=== PATIENT | female | born 1970 | race Caucasian/White ===

== ENCOUNTER 2023-04-10 17:23 | Inpatient (IN) | payer BC, OTHER ==
[2023-04-10] MEDS ORDERED: Sodium Chloride 0.9% 1,000 ML IV ONE (17:39)
[2023-04-10] MEDS ORDERED: Bupivacaine 0.5%/EPINEPHrine 1:200,000 50 ML MDV ONE (17:59)
[2023-04-10] MEDS ORDERED: Lidocaine 1% 30 ML SDV ONE (18:00)
[2023-04-10] MEDS ORDERED: Heparin Sodium 5,000 Units/ML Vial SUBCUT SCH (18:00)
[2023-04-10] MEDS: HYDROmorphone 0.5 MG/0.5 ML Syringe IVPUSH PRN (18:05)
[2023-04-10] MEDS: metroNIDAZOLE/Normal Saline 500 MG in Premix Bag 1 BAG IV SCH (18:05)
[2023-04-10] MEDS: cefTRIAXone 2 GM in Sodium Chloride 0.9% 100 ML IV SCH (18:05)
[2023-04-10] MEDS ORDERED: Propofol 200 MG/20 ML SDV ONE ×4 (18:08→19:39)
[2023-04-10] MEDS ORDERED: Dexamethasone 4 MG/ML 5 ML MDV ONE (18:08)
[2023-04-10] MEDS ORDERED: Lidocaine 1% 4 ML ONE (18:08)
[2023-04-10] MEDS ORDERED: Ondansetron 4 MG/2 ML SDV ONE (18:08)
[2023-04-10] MEDS ORDERED: fentaNYL 100 MCG/2 ML SDV ONE (18:08)
[2023-04-10] MEDS ORDERED: Ketorolac 30 MG/ML SDV ONE (18:08)
[2023-04-10] MEDS ORDERED: Rocuronium 50 MG/5 ML Vial ONE ×2 (18:09→19:01)
[2023-04-10] MEDS ORDERED: HYDROmorphone 0.5 MG/0.5 ML Syringe IVPUSH PRN (18:24)
[2023-04-10] MEDS ORDERED: fentaNYL 100 MCG/2 ML SDV IVPUSH PRN (18:24)
[2023-04-10] MEDS ORDERED: Ondansetron 4 MG/2 ML SDV IVPUSH PRN (18:24)
[2023-04-10] MEDS ORDERED: Midazolam 1 MG/ML 2 ML SDV ONE (18:37)
[2023-04-10] MEDS ORDERED: HYDROmorphone 0.5 MG/0.5 ML Syringe ONE ×2 (18:45→19:00)
[2023-04-10] MEDS ORDERED: Metoclopramide 10 MG/2 ML SDV ONE (19:04)
[2023-04-10] MEDS ORDERED: Sugammadex Sodium 200 MG/2 ML VIAL ONE (19:18)
[2023-04-10] MEDS ORDERED: Bupivacaine 0.5% 30 ML SDV ONE (19:52)
[2023-04-10] MEDS: Lactated Ringers 1,000 ML IV SCH (21:15)
[2023-04-11] MEDS: metroNIDAZOLE/Normal Saline 500 MG in Premix Bag 1 BAG IV SCH ×3 (01:48→18:22)
[2023-04-11] MEDS: Lactated Ringers 1,000 ML IV SCH ×2 (01:51→14:49)
[2023-04-11] MEDS: Heparin Sodium 5,000 Units/ML Vial SUBCUT SCH ×4 (03:25→21:09)
[2023-04-11 06:32] LABS: BASOPHILS ABSOLUTE AUTO 0.1 K/mm3 (0.0-0.2); BASOPHILS PERCENT AUTO 0.5 % (0.0-1.0); EOSINOPHILS PERCENT AUTO 0.3 % (0.0-6.0); HEMATOCRIT 36.4 % (37.0-47.0); HEMOGLOBIN 12.4 gm/dl (12.0-16.0); IMMATURE GRAN ABSOLUTE AUTO 0.03 K/mm3 (0.00-0.05); IMMATURE GRAN PERCENT AUTO 0.3 % (0.0-0.4); LYMPHOCYTES ABSOLUTE AUTO 0.4 K/mm3 (1.0-4.8); LYMPHOCYTES PERCENT AUTO 3.5 % (24.0-44.0); MEAN CORPUSCULAR HEMOGLOBIN 30.7 pg (28.0-32.0); MEAN CORPUSCULAR HGB CONC 34.1 g/dl (32.0-36.0); MEAN CORPUSCULAR VOLUME 90.1 fl (83.0-99.0); MEAN PLATELET VOLUME 9.8 fl (9.4-12.3); MONOCYTES ABSOLUTE AUTO 0.5 K/mm3 (0.0-0.8); MONOCYTES PERCENT AUTO 4.9 % (0.0-8.0); NEUTROPHILS ABSOLUTE AUTO 9.6 K/mm3 (1.8-7.7); NEUTROPHILS PERCENT AUTO 90.5 % (41.0-71.0); PLATELET COUNT,PLT 161 K/mm3 (150-400); RED BLOOD CELL COUNT 4.04 M/mm3 (4.10-5.30)
[2023-04-11] MEDS: HYDROmorphone 0.5 MG/0.5 ML Syringe IVPUSH PRN ×2 (06:32→12:53)
[2023-04-11 07:07] LABS: A/G RATIO 0.9 (1-2); ALBUMIN 2.8 g/dl (3.4-5.0); ANION GAP 12.2 (5-15); BILIRUBIN TOTAL 0.7 mg/dL (0.2-1.0); BUN/CREATININE RATIO 16.3 (14-18); CALCIUM 8.8 mg/dL (8.5-10.1); CREATININE 0.8 mg/dL (0.55-1.02); EST CRCL DRUG DOSING (CG) 75.26 mL/min; POTASSIUM,K 3.2 mEq/L (3.5-5.1); PROTEIN TOTAL,TP 6.1 g/dl (6.4-8.2)
[2023-04-11] MEDS ORDERED: Potassium Chloride 10 MEQ in Premix Bag 1 BAG IV ONE (07:49)
[2023-04-11 08:54] LABS: SLIDE REVIEW ABNORMAL SMEAR
[2023-04-11] MEDS: Potassium Chloride 10 MEQ Tab.ER PO SCH ×2 (09:05→21:09)
[2023-04-11] MEDS: Pantoprazole 40 MG Vial IVPUSH SCH (09:05)
[2023-04-11] MEDS: Acetaminophen/HYDROcodone 325-10 MG Tab PO PRN ×2 (17:25→23:22)
[2023-04-11] MEDS: cefTRIAXone 2 GM in Sodium Chloride 0.9% 100 ML IV SCH (18:23)
[2023-04-11] MEDS ORDERED: Heparin Sodium 5,000 Units/ML Vial SUBCUT SCH (23:30)
[2023-04-12] MEDS: metroNIDAZOLE/Normal Saline 500 MG in Premix Bag 1 BAG IV SCH ×3 (02:10→17:06)
[2023-04-12] MEDS: Lactated Ringers 1,000 ML IV SCH ×2 (03:32→18:20)
[2023-04-12] MEDS: Acetaminophen/HYDROcodone 325-10 MG Tab PO PRN ×3 (05:23→20:05)
[2023-04-12] MEDS: Heparin Sodium 5,000 Units/ML Vial SUBCUT SCH ×3 (05:23→21:10)
[2023-04-12 06:08] LABS: A/G RATIO 0.7 (1-2); ALBUMIN 2.5 g/dl (3.4-5.0); ANION GAP 10.6 (5-15); BILIRUBIN TOTAL 0.5 mg/dL (0.2-1.0); BUN/CREATININE RATIO 16.3 (14-18); CALCIUM 8.4 mg/dL (8.5-10.1); CREATININE 0.8 mg/dL (0.55-1.02); EST CRCL DRUG DOSING (CG) 75.26 mL/min; POTASSIUM,K 3.6 mEq/L (3.5-5.1); PROTEIN TOTAL,TP 6.3 g/dl (6.4-8.2)
[2023-04-12 06:15] LABS: BASOPHILS PERCENT AUTO 0.1 % (0.0-1.0); EOSINOPHILS PERCENT AUTO 0.1 % (0.0-6.0); HEMATOCRIT 33.9 % (37.0-47.0); HEMOGLOBIN 11.5 gm/dl (12.0-16.0); IMMATURE GRAN ABSOLUTE AUTO 0.02 K/mm3 (0.00-0.05); IMMATURE GRAN PERCENT AUTO 0.2 % (0.0-0.4); LYMPHOCYTES ABSOLUTE AUTO 0.7 K/mm3 (1.0-4.8); LYMPHOCYTES PERCENT AUTO 8.1 % (24.0-44.0); MEAN CORPUSCULAR HEMOGLOBIN 31.5 pg (28.0-32.0); MEAN CORPUSCULAR HGB CONC 33.9 g/dl (32.0-36.0); MEAN CORPUSCULAR VOLUME 92.9 fl (83.0-99.0); MONOCYTES ABSOLUTE AUTO 0.4 K/mm3 (0.0-0.8); MONOCYTES PERCENT AUTO 4.5 % (0.0-8.0); NEUTROPHILS ABSOLUTE AUTO 7.1 K/mm3 (1.8-7.7); PLATELET COUNT,PLT 144 K/mm3 (150-400); RED BLOOD CELL COUNT 3.65 M/mm3 (4.10-5.30); WHITE BLOOD CELL COUNT,WBC 8.17 K/mm3 (3.9-11.3)
[2023-04-12] MEDS: HYDROmorphone 0.5 MG/0.5 ML Syringe IVPUSH PRN (08:19)
[2023-04-12] MEDS: Potassium Chloride 10 MEQ Tab.ER PO SCH (08:20)
[2023-04-12] MEDS: Pantoprazole 40 MG Vial IVPUSH SCH (08:20)
[2023-04-12] MEDS: Ondansetron 4 MG/2 ML SDV IVPUSH PRN (09:10)
[2023-04-12] MEDS: Polyethylene Glycol 3350 Powder 17 GM Packet PO SCH (10:16)
[2023-04-12] MEDS: Docusate Sodium 100 MG Cap PO SCH ×2 (10:16→20:05)
[2023-04-12] MEDS: cefTRIAXone 2 GM in Sodium Chloride 0.9% 100 ML IV SCH (18:20)
[2023-04-13] MEDS: metroNIDAZOLE/Normal Saline 500 MG in Premix Bag 1 BAG IV SCH ×3 (02:13→18:38)
[2023-04-13] MEDS: Acetaminophen/HYDROcodone 325-10 MG Tab PO PRN ×3 (03:20→17:11)
[2023-04-13] MEDS: Heparin Sodium 5,000 Units/ML Vial SUBCUT SCH ×3 (05:48→22:15)
[2023-04-13] MEDS: Docusate Sodium 100 MG Cap PO SCH ×2 (08:26→20:07)
[2023-04-13] MEDS: Polyethylene Glycol 3350 Powder 17 GM Packet PO SCH (08:27)
[2023-04-13] MEDS: Pantoprazole 40 MG Vial IVPUSH SCH (08:27)
[2023-04-13] MEDS: Ondansetron 4 MG/2 ML SDV IVPUSH PRN ×3 (08:52→23:38)
[2023-04-13] MEDS: Lactated Ringers 1,000 ML IV SCH (13:34)
[2023-04-13] MEDS: cefTRIAXone 2 GM in Sodium Chloride 0.9% 100 ML IV SCH (18:38)
[2023-04-14] MEDS: Acetaminophen/HYDROcodone 325-10 MG Tab PO PRN ×4 (00:07→18:25)
[2023-04-14] MEDS: metroNIDAZOLE/Normal Saline 500 MG in Premix Bag 1 BAG IV SCH ×3 (01:18→18:25)
[2023-04-14] MEDS: Lactated Ringers 1,000 ML IV SCH (01:18)
[2023-04-14] MEDS: Dextrose 5%-0.45% NaCl 1,000 ML IV SCH ×3 (02:24→21:37)
[2023-04-14] MEDS: Ondansetron 4 MG/2 ML SDV IVPUSH PRN ×4 (03:45→19:48)
[2023-04-14] MEDS: Heparin Sodium 5,000 Units/ML Vial SUBCUT SCH ×3 (06:15→21:32)
[2023-04-14 07:22] LABS: BASOPHILS PERCENT AUTO 0.2 % (0.0-1.0); EOSINOPHILS ABSOLUTE AUTO 0.1 K/mm3 (0.0-0.4); EOSINOPHILS PERCENT AUTO 0.7 % (0.0-6.0); HEMATOCRIT 33.1 % (37.0-47.0); HEMOGLOBIN 11.2 gm/dl (12.0-16.0); IMMATURE GRAN ABSOLUTE AUTO 0.03 K/mm3 (0.00-0.05); IMMATURE GRAN PERCENT AUTO 0.4 % (0.0-0.4); LYMPHOCYTES ABSOLUTE AUTO 0.6 K/mm3 (1.0-4.8); LYMPHOCYTES PERCENT AUTO 7.1 % (24.0-44.0); MEAN CORPUSCULAR HEMOGLOBIN 30.9 pg (28.0-32.0); MEAN CORPUSCULAR HGB CONC 33.8 g/dl (32.0-36.0); MEAN CORPUSCULAR VOLUME 91.4 fl (83.0-99.0); MEAN PLATELET VOLUME 9.2 fl (9.4-12.3); MONOCYTES ABSOLUTE AUTO 0.4 K/mm3 (0.0-0.8); MONOCYTES PERCENT AUTO 5.2 % (0.0-8.0); NEUTROPHILS ABSOLUTE AUTO 7.3 K/mm3 (1.8-7.7); NEUTROPHILS PERCENT AUTO 86.4 % (41.0-71.0); PLATELET COUNT,PLT 184 K/mm3 (150-400); RED BLOOD CELL COUNT 3.62 M/mm3 (4.10-5.30); WHITE BLOOD CELL COUNT,WBC 8.49 K/mm3 (3.9-11.3)
[2023-04-14 08:05] LABS: A/G RATIO 0.6 (1-2); ALBUMIN 2.3 g/dl (3.4-5.0); ANION GAP 11.4 (5-15); BILIRUBIN TOTAL 0.3 mg/dL (0.2-1.0); BUN/CREATININE RATIO 15.7 (14-18); CREATININE 0.7 mg/dL (0.55-1.02); EST CRCL DRUG DOSING (CG) 86.01 mL/min; POTASSIUM,K 3.4 mEq/L (3.5-5.1); PROTEIN TOTAL,TP 6.2 g/dl (6.4-8.2)
[2023-04-14 08:27] LABS: CALCIUM 8.5 mg/dL (8.5-10.1)
[2023-04-14] MEDS: Pantoprazole 40 MG Vial IVPUSH SCH (09:49)
[2023-04-14] MEDS: Docusate Sodium 100 MG Cap PO SCH ×3 (11:37→21:29)
[2023-04-14] MEDS: Polyethylene Glycol 3350 Powder 17 GM Packet PO SCH (11:38)
[2023-04-14] MEDS: cefTRIAXone 2 GM in Sodium Chloride 0.9% 100 ML IV SCH (17:44)
[2023-04-15] MEDS: Acetaminophen/HYDROcodone 325-10 MG Tab PO PRN ×2 (00:27→07:05)
[2023-04-15] MEDS: Ondansetron 4 MG/2 ML SDV IVPUSH PRN ×6 (00:27→21:18)
[2023-04-15] MEDS: metroNIDAZOLE/Normal Saline 500 MG in Premix Bag 1 BAG IV SCH ×3 (02:00→19:05)
[2023-04-15 05:36] LABS: BASOPHILS PERCENT AUTO 0.6 % (0.0-1.0); EOSINOPHILS ABSOLUTE AUTO 0.1 K/mm3 (0.0-0.4); EOSINOPHILS PERCENT AUTO 1.6 % (0.0-6.0); HEMATOCRIT 32.6 % (37.0-47.0); IMMATURE GRAN ABSOLUTE AUTO 0.06 K/mm3 (0.00-0.05); IMMATURE GRAN PERCENT AUTO 0.9 % (0.0-0.4); LYMPHOCYTES ABSOLUTE AUTO 0.7 K/mm3 (1.0-4.8); LYMPHOCYTES PERCENT AUTO 10.4 % (24.0-44.0); MEAN CORPUSCULAR HEMOGLOBIN 30.4 pg (28.0-32.0); MEAN CORPUSCULAR HGB CONC 33.7 g/dl (32.0-36.0); MEAN CORPUSCULAR VOLUME 90.1 fl (83.0-99.0); MEAN PLATELET VOLUME 9.3 fl (9.4-12.3); MONOCYTES ABSOLUTE AUTO 0.6 K/mm3 (0.0-0.8); MONOCYTES PERCENT AUTO 8.4 % (0.0-8.0); NEUTROPHILS ABSOLUTE AUTO 5.5 K/mm3 (1.8-7.7); NEUTROPHILS PERCENT AUTO 78.1 % (41.0-71.0); PLATELET COUNT,PLT 194 K/mm3 (150-400); RED BLOOD CELL COUNT 3.62 M/mm3 (4.10-5.30); WHITE BLOOD CELL COUNT,WBC 7.01 K/mm3 (3.9-11.3)
[2023-04-15 06:00] LABS: A/G RATIO 0.6 (1-2); ALBUMIN 2.1 g/dl (3.4-5.0); BILIRUBIN TOTAL 0.2 mg/dL (0.2-1.0); BUN/CREATININE RATIO 11.4 (14-18); CALCIUM 8.3 mg/dL (8.5-10.1); CREATININE 0.7 mg/dL (0.55-1.02); EST CRCL DRUG DOSING (CG) 86.01 mL/min; PROTEIN TOTAL,TP 5.7 g/dl (6.4-8.2)
[2023-04-15] MEDS: Heparin Sodium 5,000 Units/ML Vial SUBCUT SCH (07:06)
[2023-04-15] MEDS: Pantoprazole 40 MG Vial IVPUSH SCH (08:28)
[2023-04-15] MEDS: Docusate Sodium 100 MG Cap PO SCH (08:32)
[2023-04-15] MEDS: Polyethylene Glycol 3350 Powder 17 GM Packet PO SCH (08:32)
[2023-04-15] MEDS ORDERED: Morphine 2 MG/ML SYRINGE IVPUSH PRN (09:54)
[2023-04-15] MEDS ORDERED: Naloxone 0.4 MG/ML SDV IVPUSH PRN (09:54)
[2023-04-15] MEDS: Ketorolac 30 MG/ML SDV IVPUSH SCH ×3 (10:07→21:18)
[2023-04-15] MEDS: Dextrose 5%-0.45% NaCl 1,000 ML IV SCH (13:18)
[2023-04-15] MEDS ORDERED: cefTRIAXone 2 GM Vial ONE (18:14)
[2023-04-15] MEDS: cefTRIAXone 2 GM in Sodium Chloride 0.9% 100 ML IV SCH (18:21)
[2023-04-16] MEDS: Ondansetron 4 MG/2 ML SDV IVPUSH PRN (00:58)
[2023-04-16] MEDS: metroNIDAZOLE/Normal Saline 500 MG in Premix Bag 1 BAG IV SCH ×3 (02:19→17:02)
[2023-04-16] MEDS: Ketorolac 30 MG/ML SDV IVPUSH SCH ×4 (03:47→21:59)
[2023-04-16 05:35] LABS: BASOPHILS ABSOLUTE AUTO 0.1 K/mm3 (0.0-0.2); BASOPHILS PERCENT AUTO 0.8 % (0.0-1.0); EOSINOPHILS ABSOLUTE AUTO 0.1 K/mm3 (0.0-0.4); EOSINOPHILS PERCENT AUTO 2.4 % (0.0-6.0); HEMATOCRIT 31.4 % (37.0-47.0); HEMOGLOBIN 10.9 gm/dl (12.0-16.0); IMMATURE GRAN ABSOLUTE AUTO 0.13 K/mm3 (0.00-0.05); IMMATURE GRAN PERCENT AUTO 2.2 % (0.0-0.4); LYMPHOCYTES ABSOLUTE AUTO 1.1 K/mm3 (1.0-4.8); LYMPHOCYTES PERCENT AUTO 18.4 % (24.0-44.0); MEAN CORPUSCULAR HEMOGLOBIN 31.1 pg (28.0-32.0); MEAN CORPUSCULAR HGB CONC 34.7 g/dl (32.0-36.0); MEAN CORPUSCULAR VOLUME 89.5 fl (83.0-99.0); MEAN PLATELET VOLUME 9.3 fl (9.4-12.3); MONOCYTES ABSOLUTE AUTO 0.6 K/mm3 (0.0-0.8); MONOCYTES PERCENT AUTO 10.3 % (0.0-8.0); NEUTROPHILS ABSOLUTE AUTO 3.9 K/mm3 (1.8-7.7); NEUTROPHILS PERCENT AUTO 65.9 % (41.0-71.0); PLATELET COUNT,PLT 210 K/mm3 (150-400); RED BLOOD CELL COUNT 3.51 M/mm3 (4.10-5.30); WHITE BLOOD CELL COUNT,WBC 5.92 K/mm3 (3.9-11.3)
[2023-04-16 05:59] LABS: A/G RATIO 0.6 (1-2); ALBUMIN 2.1 g/dl (3.4-5.0); ANION GAP 8.8 (5-15); BILIRUBIN TOTAL 0.3 mg/dL (0.2-1.0); BUN/CREATININE RATIO 14.3 (14-18); CALCIUM 8.2 mg/dL (8.5-10.1); CREATININE 0.7 mg/dL (0.55-1.02); EST CRCL DRUG DOSING (CG) 86.01 mL/min; POTASSIUM,K 2.8 mEq/L (3.5-5.1); PROTEIN TOTAL,TP 5.6 g/dl (6.4-8.2)
[2023-04-16 06:22] LABS: SLIDE REVIEW NORMAL SMEAR
[2023-04-16] MEDS: Dextrose 5%-0.45% NaCl 1,000 ML IV SCH ×2 (06:37→22:01)
[2023-04-16] MEDS: Pantoprazole 40 MG Vial IVPUSH SCH (09:39)
[2023-04-16] MEDS ORDERED: Calcium Gluconate 10% 1 GM/10 ML SDV IVPUSH ONE (10:44)
[2023-04-16] MEDS: Potassium Chloride 10 MEQ in Premix Bag 1 BAG IV SCH ×4 (11:27→14:57)
[2023-04-16] MEDS: cefTRIAXone 2 GM in Sodium Chloride 0.9% 100 ML IV SCH (18:06)
[2023-04-17] MEDS: metroNIDAZOLE/Normal Saline 500 MG in Premix Bag 1 BAG IV SCH ×3 (02:09→19:20)
[2023-04-17] MEDS: Ketorolac 30 MG/ML SDV IVPUSH SCH ×4 (03:18→21:18)
[2023-04-17] MEDS: Pantoprazole 40 MG Vial IVPUSH SCH (09:13)
[2023-04-17 12:15] LABS: ANION GAP 10.4 (5-15); BUN/CREATININE RATIO 8.3 (14-18); CALCIUM 8.4 mg/dL (8.5-10.1); CREATININE 0.6 mg/dL (0.55-1.02); EST CRCL DRUG DOSING (CG) 100.34 mL/min; POTASSIUM,K 3.4 mEq/L (3.5-5.1)
[2023-04-17] MEDS: cefTRIAXone 2 GM in Sodium Chloride 0.9% 100 ML IV SCH (19:19)
[2023-04-18] MEDS: metroNIDAZOLE/Normal Saline 500 MG in Premix Bag 1 BAG IV SCH ×2 (02:17→10:01)
[2023-04-18] MEDS: Ketorolac 30 MG/ML SDV IVPUSH SCH ×3 (03:53→15:23)
[2023-04-18] MEDS: Pantoprazole 40 MG Vial IVPUSH SCH (08:33)
== END 2023-04-18 16:25 | disposition home or self-care (01) | DRG 233 ==
LOC: JD.ED 17:23 → JD.SDS 18:00 → JD.MS 21:30
PROVIDERS: ADMIT Surgery; ATTEND Surgery
PROC: 0DTJ0ZZ Resection of Appendix, Open Approach (ICD-10-PCS; principal; 2023-04-10)
DX: K35.32 Acute appendicitis with perforation, localized peritonitis, and gangrene, without abscess (principal); K91.89 Other postprocedural complications and disorders of digestive system; K56.7 Ileus, unspecified; E87.6 Hypokalemia; K21.9 Gastro-esophageal reflux disease without esophagitis; M54.9 Dorsalgia, unspecified; G89.29 Other chronic pain
CPT/HCPCS: 36415; 64488; 74018; 74018-26; 74019; 74019-26; 80048; 80053; 82947; 85025; 94760; 94761; A9270-GY; C9113; J0612; J0696; J1100; J1170; J1644; J1885; J2250; J2405; J2704; J2765; J3010; J3480; J3490; J7030; J7042; J7120